=== PATIENT | male | born 1985 | race Hispanic/Latino ===

== ENCOUNTER 2022-03-31 11:49 | Emergency (ER) | payer SELFPAY ==
[2022-03-31 15:05] VITALS: BP 133/88
--- NOTE | 2022-03-31 15:36 | Emergency Department Report ---
ED ENT HPI - General Chief complaint: Earache Stated complaint: LOSS OF HEARING Time Seen by Provider: 03/31/22 14:51 Source: patient Mode of arrival: Ambulatory Limitations: No Limitations - History of Present Illness Initial comments: 37-year-old male with no significant medical history presents the emergency department with hearing loss. Patient reports 2 weeks ago he was walking outside full over 2 miles in the hot sun, noticed that he could not hear out of his right ear at the time, progressively got worse and now affecting both ear with ringing. He denies prior history of ear problems, he denies barotrauma he denies any ear trauma, he denies pain or discomfort no foreign body, no drainage, no cough cold congestion no nausea vomiting abdominal pain. Patient denies using any earbuds or working in noisy environment. He denies dizziness, no unsteady gait or balance problems, he denies history of vertigo or Mnire's disease MD complaint: ear pain -: Gradual, week(s) Location: R ear, L ear Severity: moderate Improves with: none Worsens with: none Associated Symptoms: tinnitus, hearing loss. denies: fever, cough, gum swelling, pain with swallowing, sore throat, discharge from ear, rhinorrhea - Related Data Allergies Allergy/AdvReac Type Severity Reaction Status Date / Time No Known Allergies Allergy Verified 03/31/22 12:50 ED Dental HPI - General Chief complaint: Earache Stated complaint: LOSS OF HEARING Time Seen by Provider: 03/31/22 14:51 Source: patient Mode of arrival: Ambulatory Limitations: No Limitations - Related Data Allergies Allergy/AdvReac Type Severity Reaction Status Date / Time No Known Allergies Allergy Verified 03/31/22 12:50 ED Review of Systems ROS: Stated complaint: LOSS OF HEARING Other details as noted in HPI Constitutional: no symptoms reported. denies: fever, malaise ENT: hearing loss. denies: ear pain, throat pain Respiratory: denies: cough, orthopnea Cardiovascular: denies: chest pain Endocrine: see HPI Gastrointestinal: denies: abdominal pain, nausea, vomiting Genitourinary: denies: urgency, dysuria Musculoskeletal: denies: back pain, arthralgia Neurological: denies: headache, weakness, numbness, paresthesias, confusion, abnormal gait, vertigo Psychiatric: denies: auditory hallucinations, visual hallucinations, homicidal thoughts, suicidal thoughts Hematological/Lymphatic: denies: easy bleeding ED Past Medical Hx - Past Medical History Previous Medical History?: No - Surgical History Past Surgical History?: No - Social History Smoking Status: Former Smoker ED Physical Exam - General Limitations: No Limitations General appearance: alert, in no apparent distress, other (Hearing appears to be intact patient can hear whispers) - Head Head exam: Present: atraumatic, normocephalic - Eye Eye exam: Present: normal appearance - ENT ENT exam: Present: normal exam, normal orophraynx, TM's normal bilaterally, normal external ear exam, other (No signs of impaction, or infection, TM is intact no signs of a rupture, no fluid) - Neck Neck exam: Present: normal inspection - Respiratory Respiratory exam: Present: normal lung sounds bilaterally. Absent: wheezes, chest wall tenderness - Cardiovascular Cardiovascular Exam: Present: regular rate, normal rhythm - GI/Abdominal GI/Abdominal exam: Present: soft. Absent: distended - Extremities Exam Extremities exam: Present: normal inspection, full ROM - Back Exam Back exam: Present: normal inspection - Neurological Exam Neurological exam: Present: alert, oriented X3, CN II-XII intact - Skin Skin exam: Present: warm, dry, intact, normal color. Absent: petechiae, ecchymosis ED Course Vital Signs 03/31/22 03/31/22 12:50 14:57 Temperature 98.2 F 98.8 F Pulse Rate 110 H 95 H Respiratory 16 14 Rate Blood Pressure 133/88 Blood Pressure 125/83 131/88 [Left] O2 Sat by Pulse 99 100 Oximetry ED Medical Decision Making - Medical Decision Making 37-year-old male with no significant medical history presents the emergency department with hearing loss. Patient reports 2 weeks ago he was walking outside full over 2 miles in the hot sun, noticed that he could not hear out of his right ear at the time, progressively got worse and now affecting both ear with ringing. He denies prior history of ear problems, he denies barotrauma he denies any ear trauma, he denies pain or discomfort no foreign body, no drainage, no cough cold congestion no nausea vomiting abdominal pain. Patient denies using any earbuds or working in noisy environment. He denies dizziness, no unsteady gait or balance problems, he denies history of vertigo or Mnire's disease No signs of any acute ear infection, impaction, effusion or foreign body. Most likely a middle ear/vestibular problem. Symptoms as going on for 2 weeks, no signs of ear trauma. I encourage patient follow-up with ENT which have provided information. In the meantime of course of avoid putting anything in his ears including Q-tips, water. Patient remained stable nontoxic-appearing, afebrile, ambulating steadily without assistance. Gone over ED findings with patient as well as plan for follow-up. Also discussed return precautions with patient, all questions and concerns addressed. Patient is stable to be discharged follow-up outpatient. Audio voice dictation device used, hence the chart might contain some dictation errors, mispronunciations, wrong spelling and wrong verbiage. Critical care attestation.: If time is entered above; I have spent that time in minutes in the direct care of this critically ill patient, excluding procedure time. ED Disposition Clinical Impression: Tinnitus of both ears, Hearing difficulty of both ears Disposition: 01 HOME / SELF CARE / HOMELESS Is pt being admited?: No Does the pt Need Aspirin: No Condition: Stable Instructions: Hearing Loss, Tinnitus Referrals: ENT [facility], [facility] [Provider Group] - 3-5 Days ENT [facility] [Provider Group] - 3-5 Days Forms: Work/School Release Form(ED)
== END 2022-03-31 16:17 | disposition home or self-care (01) ==
LOC: ED 11:49
DX: H93.13 Tinnitus, bilateral (principal); H91.8X3 Other specified hearing loss, bilateral
CPT/HCPCS: 99282